=== PATIENT | male | born 1940 | race Caucasian/White ===

== ENCOUNTER → 2020-11-21 | Outpatient (CLI) | payer MEDICARE, OTHER | END | disposition home or self-care (01) | LOC: STAR 10:53 | PROVIDERS: ATTEND Orthopaedic Surgery Foot and Ankle Surgery | DX: Z01.818 Encounter for other preprocedural examination (principal); L97.519 Non-pressure chronic ulcer of other part of right foot with unspecified severity; Z20.822 Contact with and (suspected) exposure to COVID-19 | CPT/HCPCS: 93005; U0003 ==

== ENCOUNTER 2020-11-27 05:31 | Day surgery (SDC) | payer MEDICARE, OTHER ==
[~2020-11-27] VITALS: Ht 188 cm; Wt 76.0 kg
[2020-11-27 06:00] VITALS: BP 157/73
[2020-11-27] MEDS ORDERED: CHLORHEXIDINE 15 ML UDC PO ONE (06:00)
[2020-11-27] MEDS ORDERED: LACTATED RINGERS 1,000 ML IV SCH (06:00)
[2020-11-27] MEDS ORDERED: FENTANYL PF 100 MCG/2ML ONE (07:01)
[2020-11-27] MEDS ORDERED: VANCOMYCIN 500 MG ONE (07:06)
[2020-11-27] MEDS ORDERED: BUPIVACAINE/PF 0.5% ONE (07:14)
[2020-11-27] MEDS ORDERED: HYDROmorphone 1 MG/ML, 1ML INJ IVPush PRN (07:30)
[2020-11-27] MEDS ORDERED: OXYcodone 5 MG/5 ML ORAL.SOL UDC PO PRN (07:30)
[2020-11-27] MEDS ORDERED: hydrALAzine 20 MG/ML, 1ML IV PRN (07:30)
[2020-11-27] MEDS ORDERED: PROMETHAZINE 25 MG SUPP PR PRN (07:30)
[2020-11-27] MEDS ORDERED: FENTANYL PF 100 MCG/2ML IV PRN (07:30)
[2020-11-27] MEDS ORDERED: ACETAMINOPHEN 325 MG TABLET PO PRN (07:30)
[2020-11-27] MEDS ORDERED: PROMETHAZINE 25 MG/ML, 1ML IVPush PRN (07:30)
[2020-11-27] MEDS ORDERED: LABETALOL 5MG/ML, 20ML IV PRN (07:30)
[2020-11-27] MEDS ORDERED: ONDANSETRON 2MG/ML, 2ML IVPush PRN (07:30)
[2020-11-27] MEDS ORDERED: PROPOFOL 10 MG/ML, 20ML ONE (07:34)
[2020-11-27] MEDS ORDERED: CEFAZOLIN 1,000 MG ONE (07:34)
[2020-11-27] MEDS ORDERED: DEXAMETHASONE 4 MG/ML, 1ML ONE (07:34)
[2020-11-27] MEDS ORDERED: ONDANSETRON 2MG/ML, 2ML ONE (07:34)
== END 2020-11-27 09:25 | disposition home or self-care (01) ==
LOC: OUT 05:31
PROVIDERS: ATTEND Orthopaedic Surgery Foot and Ankle Surgery
DX: L97.519 Non-pressure chronic ulcer of other part of right foot with unspecified severity (principal); M86.8X7 Other osteomyelitis, ankle and foot
CPT/HCPCS: 28810; 87070; 87075; 87077; 87205; 88305; 88311; J0690; J1100; J2405; J2704; J3010; J3370; J7120